=== PATIENT | female | born 1995 | race Caucasian/White ===

== ENCOUNTER 2018-01-11 18:24 | Emergency (ER) | payer SELFPAY ==
[~2018-01-11] VITALS: Ht 170.2 cm; Wt 50.1 kg
[2018-01-11 19:11] VITALS: BP 118/71; PULSE 95; RESP 14; TEMP 98.2; O2SAT 100
[2018-01-11] MEDS ORDERED: ONDANSETRON HCL 4 MG/2 ML VIAL IV PUSH ONE (19:30)
[2018-01-11] MEDS ORDERED: SODIUM CHLOR 0.9% 1000 ML INJ 1,000 ML IV ONE (19:30)
--- NOTE | 2018-01-11 19:34 | PD ---
HPI Chief Complaint: Alcohol/Drug Intoxication Time Seen by Provider: 19:18 Travel History International Travel<30 days: No Contact w/Intl Traveler<30days: No Traveled to known affect area: No History of Present Illness HPI 22-year-old white female on spring from [place] presents emergency department by EMS from the hotel intoxicated. The patient is heavily intoxicated and cannot give any significant history. PFSH Past Medical History Medical History: Unable to Obtain Influenza Vaccination: No ?: Not LMP: CURRENTLY Past Surgical History Surgical History: Unable to Obtain Oral Surgery: Yes (wisdom teeth ) Social History Alcohol Use: Yes Tobacco Use: No Substance Use: No Allergies-Medications (Allergen,Severity, Reaction): Coded Allergies: No Known Allergies (Unverified , 01/11/18) Review of Systems ROS Limitations: Intoxication Physical Exam Narrative GENERAL: Well-developed, well-nourished in no apparent distress. Nontoxic appearing. HEAD: Normocephalic, atraumatic. EYES: Pupils equal round and reactive. Extraocular motions intact. No scleral icterus. No injection or drainage. ENT: Nose clear. Throat without erythema, tonsillar hypertrophy or exudate. Uvula midline. Airway patent. NECK: Trachea midline. Supple, nontender, moves head freely. No central bony tenderness or spasm. CARDIOVASCULAR: Regular rate and rhythm without murmurs, gallops, or rubs. RESPIRATORY: Clear to auscultation. Breath sounds equal bilaterally. No wheezes , rales, or rhonchi. GASTROINTESTINAL: Abdomen soft, non-tender, nondistended. No hepato-splenomegaly , or palpable masses. No guarding. EXTREMITIES: No clubbing, cyanosis, or edema. No joint tenderness. BACK: Nontender without deformity. No flank tenderness. NEUROLOGICAL: Awake, alert and oriented x 1 .Cranial nerves grossly intact. Motor and sensory grossly within normal limits. Slurred speech. Data Data Last Documented VS Vital Signs Date Time Temp Pulse Resp B/P (MAP) Pulse Ox O2 Delivery O2 Flow Rate FiO2 01/11/18 19:11 98.2 95 14 118/71 (87) 100 Orders Orders Iv Access Insert/Monitor (01/11/18 19:24) Sodium Chlor 0.9% 1000 Ml Inj (Ns 1000 M (01/11/18 19:30) Ondansetron Inj (Zofran Inj) (01/11/18 19:30) [facility] Medical Decision Making Medical Screen Exam Complete: Yes Emergency Medical Condition: Yes Medical Record Reviewed: Yes Differential Diagnosis Differential diagnoses: Alcohol intoxication, substance abuse, electrolyte abnormality, malingering Narrative Course IV access is obtained. Patient was given 1 L bolus normal saline 4 mg of Zofran. Condition: Stable Antwon Farmer Jan 11, 2018 19:34
[2018-01-11 23:18] VITALS: BP 122/60
--- NOTE | 2018-01-11 23:26 | PD ---
Data Data Last Documented VS Vital Signs Date Time Temp Pulse Resp B/P (MAP) Pulse Ox O2 Delivery O2 Flow Rate FiO2 01/11/18 23:37 01/11/18 23:18 100 20 100 01/11/18 19:11 98.2 Orders Orders Iv Access Insert/Monitor (01/11/18 19:24) Sodium Chlor 0.9% 1000 Ml Inj (Ns 1000 M (01/11/18 19:30) Ondansetron Inj (Zofran Inj) (01/11/18 19:30) Ed Discharge Order (01/11/18 23:26) [facility] Medical Record Reviewed: Yes Supervised Visit with SAHRA: Yes Narrative Course I, Dr. Hammonds, have reviewed the advance practice practitioner's documentation and am in agreement, met with the patient face to face, made the diagnosis, and the medical decision making was done by me. *My assessment and Findings: Patient has achieved state of clinical sobriety safe enough for discharge. 2 of her friends arrived both who are sober. The patient ambulated bathroom without difficulty and back also that difficulty. She reports feeling much better here she has received antiemetics. Diagnosis Primary Impression: Alcohol intoxication Qualified Codes: F10.920 - Alcohol use, unspecified with intoxication, uncomplicated Disposition: 01 DISCHARGE HOME Condition: Stable Mono Hammonds MD Jan 11, 2018 23:25
== END 2018-01-11 23:39 | disposition home or self-care (01) ==
LOC: NEPD 18:24
DX: F10.920 Alcohol use, unspecified with intoxication, uncomplicated (principal)
CPT/HCPCS: 96374; 99284; J2405; J7030